=== PATIENT | male | born 1940 | race Caucasian/White ===

== ENCOUNTER 2025-04-24 12:03 | Emergency (ER) | payer OTHER, SELFPAY ==
[2025-04-24 12:05] VITALS: BP 168/76
--- NOTE | 2025-04-24 12:56 | ED.GENMED ---
History of Present Illness
General
Chief Complaint: Fall
Source: patient
Time Seen by Provider: 04/24/25 12:14
History of Present Illness
History of Present Illness:
84-year-old male with past medical history of hyperlipidemia, CAD presenting to the emergency department for evaluation after he excellently fell down approximately 4 steps last night around 830 to 9 PM at night, today awoke with pain to the right
shoulder, chest wall and head. There is no reported loss consciousness, vomiting, visual changes. Patient does take daily 81 mg aspirin but no other anticoagulant medication. Patient states the main area of concern is his right shoulder and notes
that he is not able to do any overhead activities secondary to the pain.
Past History
Past History
ED Past Medical History: CAD, Hypercholesterolemia, CT, Hypothyroidism and Other (Kidney stones)
ED Past Surgical History: Orthopedic (orif left tibia 07/31) and Other
Social History
Tobacco: Former smoker
Alcohol: None
Drug: None
Personal:
Living: with family
Employment: Retired
Family History
Family History: Other (Noncontributory)
Review of Systems
Review of Systems
All Other Systems: ROS reviewed and negative except as documented in HPI and ROS
Phy Exam
Physical Exam
Physical Exam:
GENERAL: Alert , in no apparent distress
HEAD: Normocephalic atraumatic
EYE: Clear conjunctiva
NECK: Supple, no midline tenderness
ENT: o/p clr, mmm.
CARDIAC: Regular rate and rhythm .
LUNGS: Clear breath sounds bilaterally, no acute respiratory distress, no wheezes/rales/rhonchi
ABDOMEN: Soft, without focal tenderness, no r/g, no cvat
NEUROLOGICAL: Alert and oriented
SKIN: Warm and dry, skin tear in between the interdigital webbing space of the 2nd and 3rd digit
MUSCULOSKELETAL: No edema, well perfused. Right upper extremity: Tenderness directly over the AC joint. Patient does allow for some forward flexion and abduction of the shoulder but complains of increased pain at about 45 degrees. Remainder of
extremity is neurovascularly intact and without signs of trauma, no tenting of the skin. There does appear to be some widening of the AC joint on my palpation
PSYCH: Normal and appropriate interaction.
Scores
Heart Failure Risk
Heart Failure Risk Score: Not Applicable
Heart Score for Chest Pain Patients
STEMI patient?: Not applicable
Withdrawal Assessment of Alcohol
Withdrawal Assessment Completed?: Not applicable
Course
Orders/Labs/Results
Orders:
Orders
04/24/25 12:07
CT Cervical Spine W/o Iv Contr Urgent
Comment:
Reason For Exam: fall down [address] Head W/o Iv Contrast Urgent
Comment:
Reason For Exam: fall down 4 steps
CR Ribs-right 3 Vw W/pa Chest* Urgent
Comment:
Reason For Exam: fall down 4 steps
CR Shoulder, Trauma - Right Urgent
Comment:
Reason For Exam: fall down 4 steps
04/24/25 12:54
Sling Right-Treatment ONCE
Oxycodone [Roxicodone] 5 mg PO NOW STA
Vital Signs
Initial and Last Documented VS:
Initial Vital Signs
Temp Pulse Resp BP Pulse Ox
97.8 F 85 18 168/76 97
04/24/25 12:05 04/24/25 12:05 04/24/25 12:05 04/24/25 12:05 04/24/25 12:05
Last Documented Vital Signs
Temp Pulse Resp BP Pulse Ox
97.8 F 84 20 142/65 99
04/24/25 12:05 04/24/25 13:33 04/24/25 13:33 04/24/25 13:33 04/24/25 13:33
MDM/Problems Addressed
Differential Diagnosis Includes:
Shoulder sprain
Contusion
Fracture
Dislocation
Concussion
ICH
C-spine injury
Rib fracture
PTX
MDM/Problems Addressed:
84-year-old male presenting to the ER for evaluation of right sided pain after a fall last night, also some mild headache but no LOC. Most of patient's pain appears to be along the right shoulder. X-ray of the shoulder and ribs were ordered from
triage in addition to CT of the head and cervical spine. Patient declining anything for pain.
*Radiology
Radiology exam reviewed: preliminary read by ED provider (No obvious rib fracture or pneumothorax. No fracture of the humerus but there does appear to be a AC joint separation) and radiology read reviewed
*Pulse Oximetry
SaO2: 97
Oxygen Mode of Delivery: Room air
Patient hypoxic: no
*Critical Care Note
Total Time (30-74mins, 75-104mins- exclusive of procedures): Not Applicable
Patient Management
Escalation/DeEscalation of care consider admission/obs:
X-rays appear to show a mild AC joint separation. Patient placed in a sling. Can take NSAIDs/Tylenol as needed for pain. Encourage close follow-up with orthopedics as patient will likely need some physical therapy to help with range of motion of
the shoulder. Patient otherwise stable for discharge home.
ED Attending Note
-
Portions of this chart may have been created with voice recognition software.� Occasional wrong word or��sound alike� substitutions may have occurred due to the inherent limitations of voice recognition software.
Discharge Plan
Departure
Patient Disposition: Home (Routine Discharge)
Date of Disposition: 04/24/25
Time of Disposition: 12:56
Patient with high blood pressure during this ER visit?: Yes
Discharge Problem:
Separation of right acromioclavicular joint, Accidental fall
Instructions: shoulder
Prescriptions:
No Action
atorvastatin 80 MG tablet
80 mg PO HS Qty: 0
Vitamin D
1,000 mg PO DAILY
fexofenadine [Lorie] 180 MG tablet
180 mg PO DAILY
aspirin 81 MG tablet,delayed release (DR/EC)
81 mg PO DAILY
levothyroxine [Tirosint] 137 MCG capsule
137 mcg PO DAILY
cephalexin 500 MG capsule
500 mg PO QID Qty: 28 0RF
Saccharomyces boulardii 250 MG capsule
250 mg PO DAILY Qty: 7 0RF
amoxicillin-pot clavulanate 1 TABLET tablet
1 tab PO Q12 Qty: 20 0RF
tamsulosin 0.4 MG capsule
0.4 mg PO DAILY Qty: 30 0RF
Referrals:
Jamil Gonzalez MD [Active, Orthopedics]
UNKNOWN - PT DOES,NOT KNOW [Family Provider]
Interventions
Interventions:
*Risk Screen - Suicide Last Done: 04/24/25 12:05
*General Assessment Last Done: 04/24/25 12:05
*Neglect/Abuse Screening Last Done: 04/24/25 12:05
*ED COVID-19 Vaccine History Last Done: 04/24/25 12:05
*ED Influenza Vaccine History Last Done: 04/24/25 12:05
*Nursing Disposition Last Done: 04/24/25 13:33
ED-Musculoskeletal Assessment Last Done: 04/24/25 13:30
ED- Neurological Assessment Last Done: 04/24/25 13:30
ED-Skin Assessment Last Done: 04/24/25 13:30
Discharge Date and Time
Discharge Date/Time: 04/24/25 13:34
Print Language: ARMENIAN
[2025-04-24] MEDS: ROXICODONE 5 MG PO (13:05)
[2025-04-24 13:33] VITALS: BP 142/65
== END 2025-04-24 13:34 | disposition home or self-care (01) ==
LOC: EMR 12:03
PROVIDERS: EMERGENCY PHYSICIAN Emergency Medicine
DX: S43.101A Unspecified dislocation of right acromioclavicular joint, initial encounter (principal); W10.9XXA Fall (on) (from) unspecified stairs and steps, initial encounter; I25.10 Atherosclerotic heart disease of native coronary artery without angina pectoris; E78.00 Pure hypercholesterolemia, unspecified; I25.2 Old myocardial infarction; E03.9 Hypothyroidism, unspecified; Z79.82 Long term (current) use of aspirin; Z87.891 Personal history of nicotine dependence
CPT/HCPCS: 99284; 70450; 71101; 72125; 73030

== ENCOUNTER 2025-04-27 14:08 | Emergency (ER) | payer OTHER, SELFPAY ==
[2025-04-27 14:26] VITALS: BP 154/86
--- NOTE | 2025-04-27 16:33 | ED.MUSCINJ ---
HPI-Injury
General
Chief Complaint: Musculo-Skeletal Complaint
Source: patient
Exam Limitations: none
Time Seen by Provider: 04/27/25 16:21
Nursing documentation reviewed up to this point in time: agreed with
History of Present Illness-Injury
Is this injury a work related problem?: No
Is pt an associate of [facility]/[place]?: No
Initial Injury comments:
Patient to ED with complaitn of worsening pain to left shoulder. He was seen in ED 3 days ago after fall. Dx with right shoulder separation. Since then he reports worseng shoulder and neck pain. Taking ibuprofen without improvement. Brought to
ED by son for eval. No new injury.
Past History
Past History
ED Past Medical History: CAD, Hypercholesterolemia, [place], Hypothyroidism and Other (Kidney stones)
ED Past Surgical History: Orthopedic (orif left tibia 07/31) and Other
Social History
Tobacco: Former smoker
Alcohol: None
Drug: None
Personal:
Living: with family
Employment: Retired
Family History
Family History: Other (Noncontributory)
Review of Systems
Review of Systems
Allergies reviewed?: Yes
All Other Systems: ROS reviewed and negative except as documented in HPI and ROS
Constitutional: Reports no symptoms
Musculoskeletal: Reports joint pain (pain to neck and right shoulder)
Skin: Reports no symptoms
Neurological: Reports no symptoms
Psychiatric: Reports no symptoms
Musculoskeletal Injury Exam
Musculoskeletal Injury Exam
posterior neck:
Pain with Movement?: Moderate
Tender to palpation?: Moderate
Soft tissue swelling?: None
External deformity and angulation?: None
Joint effusion?: None
Hematoma-local bleeding into tissue?: None
Crepitus with movement?: No
Joint instability?: No
Malalignment/deformity?: No
Range of motion: Full
Distal skin color and temperature: normal-warm & good color
Capillary Refill: normal
Normal distal neurovascular exam?: Yes
Right Shoulder:
Pain with Movement?: Moderate
Tender to palpation?: Moderate
Soft tissue swelling?: None
External deformity and angulation?: None
Joint effusion?: None
Contusion?: Moderate
Hematoma-local bleeding into tissue?: None
Strain- Sprain- Tear (Connective tissue injury)?: Moderate
Crepitus with movement?: No
Joint instability?: No
Malalignment/deformity?: No
Range of motion: Limited
Distal skin color and temperature: normal-warm & good color
Capillary Refill: normal
Normal distal neurovascular exam?: Yes
Peripheral Pulses: radial (right): 3+
Phy Exam
General Physical Exam
General Presentation: moderate distress
General age: appears stated age
General Skin: warm and dry
General Habitus: normal
General Mental: alert
Musculoskeletal Exam
Musculoskeletal Exam: neuro vasc intact
Skin Exam
Skin Exam: normal color, warm/dry and no rash
Psychiatric Exam
Psychiatric Exam: normal mood/affect
Injury Course
Orders/Labs/Results
Orders:
Orders
04/27/25 16:27
Oxycodone [Roxicodone] 5 mg PO NOW STA
*Pulse Oximetry
SaO2: 98
Oxygen Mode of Delivery: Room air
Patient hypoxic: no
*Critical Care Note
Total Time (30-74mins, 75-104mins- exclusive of procedures): Not Applicable
Update Note
Update Note:
Ppatient to ED with complaint of worsening pain to neck and shoulder after fall on . No new injury. Pain not controlled iwth ibuprofen. Neurologically intact. RUE neurovascularly intact. WIll give rx for oxycodone, first dose given in
ED. WIll continue to alternate with ibuprofen. Given instructions on s/s to return to ED and he is agreeable to plan.
ED Attending Note
-
Portions of this chart may have been created with voice recognition software.� Occasional wrong word or��sound alike� substitutions may have occurred due to the inherent limitations of voice recognition software.
Discharge Plan
Departure
Patient Disposition: Home (Routine Discharge)
Date of Disposition: 04/27/25
Time of Disposition: 16:28
Patient with high blood pressure during this ER visit?: No
Condition: Good
Covid-19: Not Applicable
Discharge Problem:
Right shoulder pain
Instructions: Ibuprofen, How to Use a Shoulder Sling, Using Cold for Pain, Shoulder pain - ED (DC)
Prescriptions:
New
oxycodone 5 mg capsule
5 mg PO Q4H PRN (Reason: Pain) Qty: 20 0RF
No Action
atorvastatin 80 MG tablet
80 mg PO HS Qty: 0
Vitamin D
1,000 mg PO DAILY
fexofenadine [Lorie] 180 MG tablet
180 mg PO DAILY
aspirin 81 MG tablet,delayed release (DR/EC)
81 mg PO DAILY
levothyroxine [Tirosint] 137 MCG capsule
137 mcg PO DAILY
cephalexin 500 MG capsule
500 mg PO QID Qty: 28 0RF
Saccharomyces boulardii 250 MG capsule
250 mg PO DAILY Qty: 7 0RF
amoxicillin-pot clavulanate 1 TABLET tablet
1 tab PO Q12 Qty: 20 0RF
tamsulosin 0.4 MG capsule
0.4 mg PO DAILY Qty: 30 0RF
Referrals:
Erick Thurman DO [Family Provider, Family Practice]
Activity Restrictions/Additional Instructions:
Follow up with orthopedics as scheduled.
Interventions
Interventions:
*Risk Screen - Suicide Last Done: 04/27/25 14:26
*General Assessment Last Done: 04/27/25 14:26
*Neglect/Abuse Screening Last Done: 04/27/25 14:26
*ED- Fall Risk Assessment Last Done: 04/27/25 14:26
*ED COVID-19 Vaccine History Last Done: 04/27/25 14:26
*ED Influenza Vaccine History Last Done: 04/27/25 14:26
ED-Musculoskeletal Assessment Last Done: 04/27/25 15:53
Discharge Date and Time
Print Language: SERBIAN
[2025-04-27] MEDS: ROXICODONE 5 MG PO (16:36)
== END 2025-04-27 16:39 | disposition home or self-care (01) ==
LOC: EMR 14:08
PROVIDERS: EMERGENCY PHYSICIAN Emergency Medicine; FAMILY PHYSICIAN Family Medicine
DX: M25.512 Pain in left shoulder (principal); I25.10 Atherosclerotic heart disease of native coronary artery without angina pectoris; E78.00 Pure hypercholesterolemia, unspecified; E03.9 Hypothyroidism, unspecified; Z87.442 Personal history of urinary calculi; Z87.891 Personal history of nicotine dependence
CPT/HCPCS: 99282

== ENCOUNTER → 2025-05-29 17:32 | Outpatient (REF) | payer OTHER, SELFPAY | LOC: PAVMRI 17:32 | PROVIDERS: ATTENDING PHYSICIAN Student in an Organized Health Care Education/Training Program; FAMILY PHYSICIAN Family Medicine | DX: M54.12 Radiculopathy, cervical region (principal); M25.511 Pain in right shoulder | CPT/HCPCS: 72141; 73221 ==

== ENCOUNTER → 2025-06-10 12:57 | Outpatient (REF) | payer OTHER, SELFPAY | LOC: HWRCS 12:57 | PROVIDERS: ATTENDING PHYSICIAN Internal Medicine Cardiovascular Disease; FAMILY PHYSICIAN Family Medicine | DX: I25.10 Atherosclerotic heart disease of native coronary artery without angina pectoris (principal); I35.1 Nonrheumatic aortic (valve) insufficiency | CPT/HCPCS: 93306 ==